=== PATIENT | female | born 1970 | race Caucasian/White ===

== ENCOUNTER → 2017-02-27 | Day surgery (SDC) | payer BC ==
[~2017-02-27] MED LIST: CYMBALTA PO; MELOXICAM15 MG PO; METAXALONE800 M1 PO; POTASSIUM CHLO10 ME1 PO; TRAMADOL HCL50 M2 PO; TRIAMTERENE-HCT1 TA6 PO
--- NOTE | ~2017-02-27 | OR ---
Unit #: [id number] #: [id number] Patient: PAMELA MEJIA [id number] [address] [place], [place] [address] [id number] MR#: [id number] NAME: PAMELA MEJIA ROOM: Date of Procedure: 02/27/2017 Admission Date: 02/27/2017 Surgeon: Lucio Carter M.D. : 1970 Attending Physician: Jose Carter Primary Care Physician: Beata Loza M.D. [facility] CENTER OPERATIVE NOTE PROCEDURE PERFORMED Lumbar epidural steroid injection under x-ray guided needle placement with provider administered conscious sedation. PREOPERATIVE DIAGNOSES 1. Acute lumbar radiculitis. 2. Spinal stenosis, lumbosacral spine. 3. Degenerative joint disease, lumbosacral spine. 4. Degenerative disk disease, lumbosacral spine. INDICATIONS FOR PROCEDURE The patient presents today with longstanding history of chronic lumbar radicular pain secondary to her underlying degenerative processes. She is generally fairly well managed medically with ongoing continuous conservative management; however, she has experienced exacerbations, which broke through this ongoing treatment and today it only responded to epidural steroid injections. Her response rate has been approximately 80% to 100% for 8 to 10 weeks. She currently presents today with an exacerbation, which has broken through her usual ongoing conservative management similar in nature to its past; however, does also seem to be an overlying facet arthralgia component today. Therefore, we will refer this patient to [facility] for potential radiofrequency ablation. Following discussion of the radiofrequency ablation referral as well as epidural steroid injection today utilizing a dual needle access technique, the patient agreed this would be the appropriate course of action. DESCRIPTION OF PROCEDURE She was then taken to the operating room, where she was prepped and draped in sterile manner. Standard monitors were applied. She was sedated with 2 mg of IV Versed initially and required additional 2 mg of IV Versed throughout the duration of procedure. Lumbar epidural space accessed at the L4-L5 and the L2-L3 levels using loss of resistance technique and x-ray guidance. Needle placement was confirmed with injection of 2 mL of Omnipaque at each level. There was good inferior and superior flow at both injected levels. Total x-ray time for this dual needle placement was 8 seconds. Following successful needle placement localization, the patient received an injectate containing 4 mL normal saline and 40 mg of methylprednisolone at each level for a total injectate volume of 8 mL of normal saline and 80 mg of methylprednisolone. She tolerated this procedure well. She was discharged home with followup instructions, which include return to this clinic as early as 06/14/2017 if we could be of further service to her. She was instructed if she was asymptomatic at that time to simply not keep that appointment and to follow up with us or Unit #: [id number] #: [id number] Patient: PAMELA MEJIA her referring provider as such point we could be of further service to her. Dictated by... Ciro Raymundo/jenise TD: 02/28/2017 02:24 JOB #: [id number] SUR[facility] CENTER OPERATIVE NOTE Page 1 of 1 X Jose Carter MD X PROCEDURE OPERATIVE NOTE
== END | disposition home or self-care (01) ==
LOC: CCSC 10:15
DX: M47.27 Other spondylosis with radiculopathy, lumbosacral region (principal); M51.17 Intervertebral disc disorders with radiculopathy, lumbosacral region; M48.07 Spinal stenosis, lumbosacral region
CPT/HCPCS: J1040; J2250